=== PATIENT | female | born 1960 | race Caucasian/White ===

== ENCOUNTER → 2017-12-14 | Outpatient (CLI) | payer OTHER | END | disposition home or self-care (01) | LOC: MAMMO 13:23 | DX: Z12.31 Encounter for screening mammogram for malignant neoplasm of breast (principal) | CPT/HCPCS: 77067 ==

== ENCOUNTER → 2017-12-23 | Outpatient (CLI) | payer OTHER ==
--- NOTE | 2017-12-23 16:25 | RAD ---
DATE: 12/23/2017 EXAM: DIGITAL DIAGNOSTIC BILATERAL, BREAST RIGHT HISTORY: Suspicious screening study COMPARISON: 12/14/2017 This study was interpreted with the benefit of Computerized Aided Detection (CAD). The breast parenchyma shows scattered fibroglandular densities. Breast parenchyma level B. FINDINGS: Additional views of both breasts were obtained and correlated with the screening images. Rolled cc views of the left breast do not demonstrate a discrete mass. Increased density seen laterally in the left breast on the screening cc view appears to have represented a summation shadow. The oblique view of the left breast also shows no evidence of a mass. Additional views of the right breast were performed including rolled views and a CC tomosynthesis series. There is a 4 mm smooth nodule located centrally in the right breast as well as an additional similar sized nodule at the 8-9:00 location, both of which are visible on cc mindi image #[id number]. There is also a cluster of benign-appearing small lymph node type densities in the axillary tail region of the right breast. Right breast ultrasound, 12/23/2017: A targeted ultrasound exam of the right breast was performed from the 8-12 o'clock locations including the central aspect of the breast. At the 9:30 location approximately 3 cm from the nipple there is a 3 mm smooth hypoechoic nodule. There is no definite posterior acoustic enhancement or shadowing. There are low level internal echoes. No internal vascularity is seen. This is probably a complicated cyst. At the 12:00 location approximately 3 cm of the nipple there is an additional small 3 mm hypoechoic structure. It demonstrates smooth dior and low level internal echoes. No definite posterior acoustic enhancement or shadowing seen. The sonographic features are similar to the 9:30 nodule. This was best seen with the patient sitting upright. No other abnormality is identified. IMPRESSION: 1. Additional mammograms reveal no significant left breast abnormality. 2. Small hypoechoic right breast nodules at the 9:30 and 12:00 locations appear to correspond to the mammographic abnormalities and are probably complicated cysts. Follow-up right breast ultrasound in 6 months, followed by bilateral mammography at one year is suggested to establish stability. BI-RADS CATEGORY: 3 PROBABLY BENIGN FINDING(S)-SHORT INTERVAL FOLLOW-UP SUGGESTED RECOMMENDED FOLLOW-UP: 6M 6 MONTH FOLLOW-UP PQRS compliance statement: Patient information was entered into a reminder system with a target due date for the next mammogram. Mammography is a sensitive method for finding small breast cancers, but it does not detect them all and is not a substitute for careful clinical examination. A negative mammogram does not negate a clinically suspicious finding and should not result in delay in biopsying a clinically suspicious abnormality. "Our facility is accredited by the [employer] Mammography [employer]."
== END | disposition home or self-care (01) ==
LOC: MAMMO 13:45
DX: R92.8 Other abnormal and inconclusive findings on diagnostic imaging of breast (principal)
CPT/HCPCS: 76641; 77066

== ENCOUNTER → 2018-06-28 | Outpatient (CLI) | payer OTHER ==
--- NOTE | 2018-06-28 14:19 | RAD ---
Right breast ultrasound, 06/28/2018: History: Six-month follow-up On the previous study small lesions thought to represent complicated cysts were identified at the 9:30 and 12:00 locations in the right breast. Today we performed a targeted ultrasound exam of both regions. No mass or abnormal fluid collection is currently seen in those regions. These presumed cysts appear to have resolved. No new abnormality is detected. IMPRESSION: Previously noted probable breast cysts are no longer visible. Follow-up bilateral mammography in 6 months and then at yearly intervals is suggested. BI-RADS 2-benign findings
== END | disposition home or self-care (01) ==
LOC: US 13:13
PROVIDERS: ATTEND Nurse Practitioner Family
DX: R92.8 Other abnormal and inconclusive findings on diagnostic imaging of breast (principal)
CPT/HCPCS: 76641

== ENCOUNTER → 2019-01-19 | Outpatient (CLI) | payer OTHER ==
--- NOTE | 2019-01-20 15:41 | RAD ---
DATE: 01/19/2019 EXAM: DIGITAL SCREEN BILAT W/CAD HISTORY: Routine screening COMPARISON: None available at this time. This study was interpreted with the benefit of Computerized Aided Detection (CAD). Breast Density: SCATTERED The breast parenchyma shows scattered fibroglandular densities. Breast parenchyma level B. FINDINGS: Multiple small masses are present bilaterally. No suspicious calcifications or distortion. No dominant mass. IMPRESSION: No suspicious finding. BI-RADS CATEGORY: 1 NEGATIVE RECOMMENDED FOLLOW-UP: 12M 12 MONTH FOLLOW-UP PQRS compliance statement: Patient information was entered into a reminder system with a target due date in one year for the next mammogram. Mammography is a sensitive method for finding small breast cancers, but it does not detect them all and is not a substitute for careful clinical examination. A negative mammogram does not negate a clinically suspicious finding and should not result in delay in biopsying a clinically suspicious abnormality. "Our facility is accredited by the [employer] Mammography [employer]."
== END | disposition home or self-care (01) ==
LOC: MAMMO 14:18
PROVIDERS: ATTEND Nurse Practitioner Family
DX: Z12.31 Encounter for screening mammogram for malignant neoplasm of breast (principal); N63.20 Unspecified lump in the left breast, unspecified quadrant; N63.10 Unspecified lump in the right breast, unspecified quadrant
CPT/HCPCS: 77067

== ENCOUNTER → 2020-08-20 | Outpatient (CLI) | payer OTHER ==
--- NOTE | 2020-08-20 16:15 | RAD ---
EXAM: Bilateral screening mammogram. HISTORY: 60-year-old female presents for screening mammography. TECHNIQUE: Full-field digital craniocaudal and mediolateral oblique views of both breasts are obtaine d for evaluation. Computer aided detection was applied. COMPARISON: 01/19/2019 BREAST PARENCHYMAL DENSITY: Level B - Scattered fibroglandular densities. FINDINGS: There is no new suspicious mass, microcalcification or region of architectural distortion. There are stable areas of asymmetry within both breasts. There is a stable right axillary tail lymph node. IMPRESSION: BI-RADS Category 2: Benign finding(s). RECOMMENDATION: Annual mammography is recommended. If your mammogram demonstrates that you have dense breast tissue, which could hide abnormalities, and if you have other risk factors for breast cancer that have been identified, you might benefit from s upplemental screening tests that may be suggested by your ordering physician. Dense breast tissue, i n and of itself, is a relatively common condition. This information is not provided to cause undue c oncern, but rather to raise your awareness and to promote discussion with your physician regarding th e presence of other risk factors, in addition to dense breast tissue. A report of your mammography re sults will be sent to you and your physician. You should contact your physician if you have any ques tions or concerns regarding this report. Mammography is a sensitive method for finding small breast cancers, but it does not detect them all a nd is not a substitute for careful clinical examination. A negative mammogram does not negate a clin ically suspicious finding and should not result in delay in biopsying a clinically suspicious abnorma lity. PQRS compliance statement - Patient information was entered into a reminder system with a target due date for the next mammogram. "Our facility is accredited by the [employer] Mammography [employer]." Electronically signed by: Malu Guerrero MD (08/20/2020 4:12 PM) [id number]
== END ==
LOC: MAMMO 15:29
PROVIDERS: ATTEND Nurse Practitioner Family
DX: Z12.31 Encounter for screening mammogram for malignant neoplasm of breast (principal)
CPT/HCPCS: 77067